=== PATIENT | female | born 1960 | race Caucasian/White ===

== ENCOUNTER 2025-07-16 01:52 | Emergency (ER) | payer OTHER, MEDICARE, SELFPAY ==
[2025-07-16 01:54] VITALS: BP 126/77
[2025-07-16 02:30] VITALS: BP 117/76
[2025-07-16 03:00] VITALS: BP 98/52
[2025-07-16 03:06] LABS: Hematocrit 39.0 % (37.0-47.0); Hemoglobin 13.0 g/dL (12.0-16.0); Mean Corp Hgb Conc. 33.3 g/dL (33.0-37.0); Mean Corpuscular Volume 93.3 fL (81.0-99.0); Nucleated Red Blood Cells % 0 %; Platelet Count 200 10^3/uL (130-400); Red Cell Dist. Width 13.1 % (11.5-14.5)
[2025-07-16 03:19] LABS: ALT (SGPT) 53 U/L (0-35); AST (SGOT) 58 U/L (14-36); Albumin 4.6 g/dl (3.5-5.0); Alkaline Phosphatase 104 U/L (38-126); Blood Urea Nitrogen 12 mg/dl (7-17); Calcium 9.7 mg/dl (8.4-10.2); Carbon Dioxide 24 mmol/L (22-30); Chloride 103 mmol/L (98-107); Glucose 95 mg/dl (70-99); Potassium 4.4 mmol/L (3.5-5.1); Sodium 138 mmol/L (135-145); Total Protein 7.6 g/dl (6.3-8.2); eGFR > 60.00
--- NOTE | 2025-07-16 03:59 | ED.GENMED ---
History of Present Illness
General
Chief Complaint: Musculo-Skeletal Complaint
Source: patient, spouse, family and ambulance crew
Exam Limitations: none
Time Seen by Provider: 07/16/25 03:38
Nursing documentation reviewed up to this point in time: agreed with
History of Present Illness
History of Present Illness:
The patient is a 64-year-old female with history of low back injury 3 years ago, chronically uses a cane to ambulate. She presents via EMS after experienced difficulty standing from the toilet and mild collapse tonight after attending a wedding
[employer] services [employer]. The patient reports consuming more alcohol than usual at the event but denies any pain or injury. She recounts needing assistance to rise from the toilet and subsequently collapsing onto her knees. While attempting to stand, she was able
to get up with help. The patient did not experience any pain. She denies head injury nor loss of consciousness. She admits to wearing high heels at the wedding which is unusual for her.
No other associated symptoms.
Her only daily medications are multivitamin, low-dose aspirin, B12, fish oil.
Past History
Past History
ED Past Medical History: CVA, Hypercholesterolemia and Other (Low back pain/low back injury 2021. Ambulates with a cane.)
ED Past Surgical History: None
Social History
Tobacco: Non-smoker
Alcohol: Occasional
Drug: None
Personal:
Living: with family
Employment: Retired
Family History
Family History: Other (Noncontributory)
Phy Exam
Physical Exam
Physical Exam:
GENERAL: This is a 64-year-old woman appears her stated age, awake and alert, pleasant, easily communicative and in no acute distress. and son are accompanying.
EYE: pupils equal and reactive. anicteric. The head is normocephalic, atraumatic.
NECK: Supple, nontender, no meningismus, no significant adenopathy. Full range of motion without difficulty nor pain.
ENT: posterior pharynx is clear, oral mucosa is minimally dry. TM clear b/l, nares patent.
CARDIAC: Regular rate and rhythm. no murmur. No chest wall tenderness.
LUNGS: Clear breath sounds bilaterally, no acute respiratory distress, no wheezes/rales/rhonchi
ABDOMEN: Soft, nondistended, without focal tenderness, no r/g, no cvat. normoactive BS.
BACK: No midline bony tenderness. Patient sits up with ease and without assistance. Straight leg raising is negative bilaterally.
NEUROLOGICAL: Alert and oriented x3, no focal neuro deficits. Motor strength is 5/5 bilaterally. Gross sensation is intact.
SKIN: Warm and dry, normal color, skin intact. No rash.
MUSCULOSKELETAL: No C/C/E. peripheral pulses are full and equal b/l. No palpable tenderness.
PSYCH: Normal and appropriate interaction.
Course
Orders/Labs/Results
Orders:
Orders
07/16/25 02:43
Alcohol Urgent
Complete Blood Count/With Diff Urgent
Comprehensive Metabolic Panel Urgent
07/16/25 03:58
0.9% Sodium Chloride 1000 ml [Nss] 1,000 ml IV BOLUS
Abnormal Lab Results
07/16/25
02:43
RBC 4.18 L 10^6/uL
(4.20-5.40)
MCH 31.1 H pg
(27.0-31.0)
Creatinine 0.5 L mg/dL
(0.6-1.0)
AST 58 H U/L
(14-36)
ALT 53 H U/L
(0-35)
07/16/25 02:43
07/16/25 02:43
Vital Signs
Initial and Last Documented VS:
Initial Vital Signs
Temp Pulse Resp BP Pulse Ox
97.4 F 102 20 126/77 100
07/16/25 01:54 07/16/25 01:54 07/16/25 01:54 07/16/25 01:54 07/16/25 01:54
Last Documented Vital Signs
Temp Pulse Resp BP Pulse Ox
97.4 F 100 18 110/67 99
07/16/25 01:54 07/16/25 04:30 07/16/25 04:30 07/16/25 04:00 07/16/25 04:30
MDM/Problems Addressed
Differential Diagnosis Includes:
The differential diagnosis includes, in no particular order and is not limited to:
1. Alcohol intoxication
2. Orthostatic hypotension
3. Syncope
4. Dehydration
5. Neurological disorder
6. Vestibular disorder
7. Muscle weakness
8. Medication side effect
9. Cardiovascular event
10. Electrolyte imbalance
MDM/Problems Addressed:
Generalized weakness/lower extremity weakness with inability to stand and ambulate.
Significant alcohol consumption while attending a wedding and then after democrat.
No focal neurodeficits and patient is awake and alert.
Exam is benign, no focal tenderness. No focal neurodeficits.
Labs are all unremarkable save for mildly elevated alcohol level of 236.
I highly suspect alcohol intoxication as cause for patient's difficulty with ambulation.
IV fluids established. Will continue with IV fluids and then plan for orthostatic vital signs and ambulation trial.
At this point no indication for imaging.
Chronic conditions affecting care: Other (Chronic low back pain, ambulatory dysfunction, utilizes a walker to ambulate.)
*Pulse Oximetry
SaO2: 98
Oxygen Mode of Delivery: Room air
Patient hypoxic: no
*Critical Care Note
Total Time (30-74mins, 75-104mins- exclusive of procedures): Not Applicable
Update Note
Update Note:
04:30
After IV fluids and tincture of time patient has ambulated to the bathroom with minimal assistance with cane assist. She is feeling well, back to her baseline.
Discharge to home with family.
Encouraged to stay well-hydrated over the next several days and to avoid any further alcoholic beverages.
ED Attending Note
-
Portions of this chart may have been created with voice recognition software.� Occasional wrong word or��sound alike� substitutions may have occurred due to the inherent limitations of voice recognition software.
Discharge Plan
Departure
Patient Disposition: Home (Routine Discharge)
Date of Disposition: 07/16/25
Time of Disposition: 04:30
Patient with high blood pressure during this ER visit?: No
Condition: Good
Discharge Problem:
Alcohol intoxication, Generalized muscle weakness
Instructions: Alcohol intoxication - ED (DC), Weakness - ED (DC)
Prescriptions:
No Action
aspirin [Aspir-81] 81 mg Tablet,Delayed Release (Dr/Ec)
81 mg PO DAILY
Referrals:
NONE,* [Family Provider, Internal Medicine] - As needed
Interventions
Interventions:
*Risk Screen - Suicide Last Done: 07/16/25 01:54
*General Assessment Last Done: 07/16/25 01:54
*Neglect/Abuse Screening Last Done: 07/16/25 01:54
*ED- Fall Risk Assessment Last Done: 07/16/25 02:30
*Nursing Disposition Last Done: 07/16/25 04:59
ED-Musculoskeletal Assessment Last Done: 07/16/25 02:10
Discharge Date and Time
Discharge Date/Time: 07/16/25 05:00
Print Language: MOROCCAN
[2025-07-16 04:00] VITALS: BP 110/67
[2025-07-16] MEDS: NSS 1000 IV (04:21)
== END 2025-07-16 05:00 | disposition home or self-care (01) ==
LOC: EMR 01:52
PROVIDERS: EMERGENCY PHYSICIAN Emergency Medicine
DX: F10.129 Alcohol abuse with intoxication, unspecified (principal); Y90.7 Blood alcohol level of 200-239 mg/100 ml; M62.81 Muscle weakness (generalized); E78.00 Pure hypercholesterolemia, unspecified; M54.50 Low back pain, unspecified; G89.29 Other chronic pain; R26.9 Unspecified abnormalities of gait and mobility; Z79.82 Long term (current) use of aspirin; Z86.73 Personal history of transient ischemic attack (TIA), and cerebral infarction without residual deficits
CPT/HCPCS: 99284; 96360; 80053; 82077; 85025